=== PATIENT | female | born 1945 | race Caucasian/White ===

== ENCOUNTER 2017-10-20 08:53 | Day surgery (SDC) | payer MEDICARE, OTHER ==
[~2017-10-20] VITALS: Ht 170.2 cm; Wt 90.3 kg
[2017-10-20] MEDS ORDERED: ALPR.25 PO (09:48)
[2017-10-20] MEDS ORDERED: Amlodipine Besy10 MG PO (09:48)
[2017-10-20] MEDS ORDERED: ROSU10TA PO (09:49)
[2017-10-20] MEDS ORDERED: Diovan320 MG PO (09:50)
[2017-10-20] MEDS ORDERED: TIROSINT50 MCG PO (09:50)
[2017-10-20] MEDS ORDERED: VENL150ER PO (09:51)
== END 2017-10-20 10:36 | disposition home or self-care (01) ==
LOC: ORSCSDS 08:53
PROVIDERS: Anesthesiology
PROC: 3E0R33Z Introduction of Anti-inflammatory into Spinal Canal, Percutaneous Approach (ICD-10-PCS; principal; 2017-10-20 10:15)
DX: M51.16 Intervertebral disc disorders with radiculopathy, lumbar region (principal); I10 Essential (primary) hypertension; E78.00 Pure hypercholesterolemia, unspecified; E03.9 Hypothyroidism, unspecified; Z87.891 Personal history of nicotine dependence; Z79.899 Other long term (current) drug therapy
CPT/HCPCS: J1040

== ENCOUNTER → 2021-01-26 | Outpatient (CLI) | payer MEDICARE, OTHER ==
[~2021-01-26] MED LIST: ALPR.25 PO; Amlodipine Besy10 MG PO; Azor 10-20 MG1 EACH PO; Crestor20 MG PO; Diovan320 MG PO; FISH OIL + D31 EACH; HYOS.125 SL; LEVSOD50 PO; LORA.5; LOSARTAN POTAS100 MG PO; Lomotil Tablet1 EACH PO; OMEG1CAP30 PO; RABE20 PO; ROSU10TA PO; TIROSINT50 MCG PO; VENL150ER PO
== END ==
LOC: LAB 18:08 → LAB SHORT 18:08
DX: S81.851A Open bite, right lower leg, initial encounter (principal)
CPT/HCPCS: 87070; 87075; 87205

== ENCOUNTER → 2022-05-17 | Outpatient (CLI) | payer MEDICARE | LOC: PLD 08:19 → LAB SHORT 08:19 | DX: C44.612 Basal cell carcinoma of skin of right upper limb, including shoulder (principal); D17.21 Benign lipomatous neoplasm of skin and subcutaneous tissue of right arm | CPT/HCPCS: 88304; 88305 ==